=== PATIENT | female | born 1995 | race Hispanic/Latino ===

== ENCOUNTER 2017-01-17 15:20 | Emergency (ER) | payer OTHER ==
[~2017-01-17] VITALS: Ht 162.6 cm; Wt 80.0 kg
[~2017-01-17 15:20] MED LIST: AMOXICILLIN875 MG OR; AMOXICILLIN875 MG PO; CEPHALEXIN500 MG PO; CIPROFLOXACIN500 M1 PO; CLARITIN10 M1 PO; DIFLUCAN150 MG PO; FLONASE NASAL50 MCG; IBUPROFEN600 MG PO; KEFLEX500 MG PO; MEDDOSEPAK OR; MELOXICAM15 MG PO; NAPROSYN250 MG PO; NAPROSYN375 MG PO; NAPROSYN500 MG PO; NO; [UNRECOGNIZED DRUG - OTHER] VA
[2017-01-17] MEDS ORDERED: MOTRIN800 MG PO (15:40)
[2017-01-17 15:50] VITALS: BP 118/66
== END 2017-01-17 15:50 | disposition home or self-care (01) | DRG 605 ==
LOC: ED 15:20
DX: S80.01XA Contusion of right knee, initial encounter (principal); V43.62XA Car passenger injured in collision with other type car in traffic accident, initial encounter

== ENCOUNTER 2020-06-13 18:03 | Emergency (ER) | payer BC ==
[~2020-06-13] VITALS: Ht 162.6 cm; Wt 111.8 kg
[~2020-06-13 18:03] MED LIST changes: +MOTRIN800 MG PO
[2020-06-13] MEDS ORDERED: LISINOPRIL10 MG PO (18:47)
[2020-06-13 19:07] LABS: URINE BILIRUBIN - DIPSTICK NEGATIVE (NEGATIVE); URINE BLOOD DIPSTICK NEGATIVE (NEGATIVE); URINE COLOR YELLOW; URINE GLUCOSE - DIPSTICK NEGATIVE (NEGATIVE); URINE KETONE NEGATIVE (NEGATIVE); URINE LEUK ESTERASE NEGATIVE (NEGATIVE); URINE NITRITE - DIPSTICK NEGATIVE (Negative); URINE PH 5.5 (4.5-8.0); URINE PROTEIN - DIPSTICK NEGATIVE (NEG-TRACE); URINE SPECIFIC GRAVITY >=1.030; URINE UROBILINOGEN - DIPSTICK 0.2 E.U./dL (0.2)
[2020-06-13 19:21] LABS: HEMOGLOBIN 12.9 g/dl (12.0-16.0); IMMATURE GRANULOCYTES 0.3 % (0.0-5.0); MEAN CELL VOLUME 81.3 fL CALC (80.0-100.0); MEAN CORPUSCULAR HGB 26.3 pG CALC (26.0-32.0); MEAN CORPUSCULAR HGB CONC 32.3 g/dL CAL (32.0-36.0); NEUT# 12.01 thou/uL (2.00-7.15); RED BLOOD COUNT 4.91 mill/uL (4.20-5.60); RED CELL DISTRI WIDTH 13.5 % (11.5-15.5)
[2020-06-13 19:24] LABS: HEMATOCRIT 39.9 % (37.0-47.0)
[2020-06-13 19:33] LABS: ALBUMIN 4.2 g/dL (3.2-5.0); AMYLASE 49 u/l (30-110); BUN 12 mg/dL (7-17); BUN/CREATININE RATIO 21 (12-20 (CALC)); CHLORIDE 103 mmol/l (95-108); CREATININE 0.6 mg/dL (0.5-1.0); GFR > 60 ML/MIN (>=60 (CALC)); GFR FOR AFR.AMER. > 60 ML/MIN (>=60 (CALC)); LIPASE 35 u/l (23-300); POTASSIUM 4.1 mmol/l (3.5-5.1); SGOT/AST 23 u/l (14-36); SODIUM 136 mmol/l (137-146); TOTAL PROTEIN 7.4 g/dL (6.3-8.2)
[2020-06-13 19:41] LABS: ALKALINE PHOSPHATASE 85 u/l (38-126); ANION GAP 12 (6-22 (CALC)); BILIRUBIN, TOTAL 0.5 mg/dL (0.0-1.4); CARBON DIOXIDE 25 mmol/l (22-30)
[2020-06-13] MEDS ORDERED: ZOFRAN4 MG/TAB PO (19:57)
[2020-06-13 20:18] VITALS: BP 124/61
== END 2020-06-13 20:28 | disposition home or self-care (01) | DRG 392 ==
LOC: ED 18:03
PROVIDERS: Emergency Medicine
DX: K52.9 Noninfective gastroenteritis and colitis, unspecified (principal); I10 Essential (primary) hypertension

== ENCOUNTER 2022-09-14 08:28 | Emergency (ER) | payer OTHER ==
[~2022-09-14] VITALS: Ht 162.6 cm; Wt 114.0 kg
[~2022-09-14 08:28] MED LIST changes: +LISINOPRIL10 MG PO; +ZOFRAN4 MG/TAB PO
[2022-09-14] MEDS ORDERED: LEXAPRO5 MG PO (08:49)
[2022-09-14] MEDS ORDERED: VENTOLIN HFA108 MCG PO (09:34)
[2022-09-14] MEDS ORDERED: AMOX/K CLAV875 M1 PO (09:34)
[2022-09-14 09:51] VITALS: BP 164/98
== END 2022-09-14 09:59 | disposition home or self-care (01) | DRG 153 ==
LOC: ED 08:28
DX: J06.9 Acute upper respiratory infection, unspecified (principal); I10 Essential (primary) hypertension; F41.9 Anxiety disorder, unspecified; Z20.822 Contact with and (suspected) exposure to COVID-19

== ENCOUNTER 2023-06-25 10:20 | Day surgery (SDC) | payer OTHER ==
[~2023-06-25] VITALS: Ht 162.6 cm; Wt 114.4 kg
[2023-06-25] VITALS (8 sets, daily range): BP systolic 105–146; BP diastolic 63–91
[~2023-06-25 10:20] MED LIST changes: +AMOX/K CLAV875 M1 PO; +ESCITALOPRAM OX10 MG PO; +HYDROCHLOROT25 MG PO; +LEXAPRO20 MG PO; +LEXAPRO5 MG PO; +NORVASC PO; +OXYCODONE HYDRO; +TOPIRAMATE25 MG PO; +VENTOLIN HFA108 MCG PO
--- NOTE | 2023-06-25 10:30 | NUR ---
female pt received to med surg ambulatory in stable condition; admission assessment completed at this time; pt alert and oriented; admits to upper abd pain, will medicate; no n/v noted; resp even and unlabored; hr reg; strong pulses; abd soft/tender with bs present; pt admits to 06/24/23; no urine to inspect at this time; #20 started to rac x1 attempt; flushed and patent; poc/ surgery/npo status explained; call light within reach; will continue to monitor
[2023-06-25 11:04] LABS: BASO% 0.1 % (0-3); EOS% 0.1 % (0-8); HEMATOCRIT 41.9 % (37.0-47.0); HEMOGLOBIN 14.1 g/dl (12.0-16.0); IMMATURE GRANULOCYTES 0.1 % (0.0-5.0); LYMPH% 17.1 % (15-41); MEAN CELL VOLUME 84.1 fL CALC (80.0-100.0); MEAN CORPUSCULAR HGB 28.3 pG CALC (26.0-32.0); MEAN CORPUSCULAR HGB CONC 33.7 g/dL CAL (32.0-36.0); MONO% 6.8 % (2-13); NEUT# 12.07 thou/uL (2.00-7.15); NEUT% 75.8 % (42-76); RED BLOOD COUNT 4.98 mill/uL (4.20-5.60); RED CELL DISTRI WIDTH 11.9 % (11.5-15.5)
[2023-06-25] MEDS ORDERED: HYDROmorphone HCL 2 MG/AMP IV PRN ×2 (11:20→13:35)
[2023-06-25] MEDS ORDERED: STERILE WATER FOR IRRIGATION 1,000 ML BTL IR ONE (11:23)
[2023-06-25] MEDS ORDERED: SODIUM CHLORIDE 1,000 ML BTL IR ONE (11:23)
[2023-06-25] MEDS ORDERED: LIDOcaine HCl 1% (Local Anesth.) 20 ML VIAL ONE (11:23)
[2023-06-25] MEDS ORDERED: Iopamidol 300 (Isovue) 61% 100ML SDV IV ONE (11:24)
[2023-06-25] MEDS ORDERED: GLUCAGON HCL (Rdna) 1 MG VIAL ONE (11:24)
[2023-06-25 11:27] LABS: BUN 8 mg/dL (7-17); BUN/CREATININE RATIO 13 (12-20 (CALC)); CARBON DIOXIDE 27 mmol/l (22-30); CHLORIDE 103 mmol/l (95-108); CREATININE 0.6 mg/dL (0.5-1.0); GFR FOR AFR.AMER. > 60 ML/MIN (>=60 (CALC)); GFR OTHER RACES > 60 ML/MIN (>=60 (CALC)); SODIUM 140 mmol/l (137-146)
[2023-06-25] MEDS ORDERED: FAMOTIDINE 10MG/ML 2ML SDV IV ONE (11:44)
[2023-06-25] MEDS ORDERED: ceFAZolin Sodium 2 GM/VIAL SDV ONE (11:44)
[2023-06-25] MEDS ORDERED: SODIUM CHLORIDE 0.9% 100 ML IV ONE (11:45)
[2023-06-25] MEDS ORDERED: LACTATED RINGER'S 1,000 ML IV ONE (11:45)
[2023-06-25] MEDS ORDERED: PIPERACILLIN Sodium-Tazobactam 3.375 GM VIAL IV ONE (11:46)
[2023-06-25 11:47] LABS: ANION GAP 14 (6-22 (CALC)); POTASSIUM 3.5 mmol/l (3.5-5.1)
[2023-06-25] MEDS ORDERED: SODIUM CHLORIDE 0.9% 10 ML SYR ONE ×2 (11:51→13:57)
[2023-06-25] MEDS ORDERED: ROCURONIUM BROMIDE 10 MG/ML 5ML VIAL IV ONE (12:00)
[2023-06-25] MEDS ORDERED: SUCCINYLCHOLINE CHLORIDE 20 MG/ML 10ML VIAL IV ONE (12:00)
[2023-06-25] MEDS ORDERED: PIPERACILLIN Sodium-Tazobactam 3.375 GM in SODIUM CHLORIDE 0.9% 100 ML IV SCH (12:00)
[2023-06-25] MEDS ORDERED: SUGAMMADEX SODIUM 200 MG/2 ML SDV IV ONE (12:00)
[2023-06-25] MEDS ORDERED: KETOROLAC TROMETHAMINE 15 MG/ML SDV IV SCH (12:00)
[2023-06-25] MEDS ORDERED: ONDANSETRON HCl 4 MG/2 ML SDV IV ONE (12:00)
[2023-06-25] MEDS ORDERED: PROPOFOL 200 MG/20 ML VIAL IV ONE (12:00)
[2023-06-25] MEDS ORDERED: LIDOCAINE HCL 2% 2ML SDV IV ONE (12:00)
[2023-06-25] MEDS ORDERED: KETOROLAC TROMETHAMINE 30 MG/ML SDV IV ONE (12:00)
--- NOTE | 2023-06-25 12:07 | NUR ---
pt in or
[2023-06-25] MEDS ORDERED: DEXTROSE 5% w/NACL 0.45 1,000 ML IV PRN (12:25)
[2023-06-25] MEDS ORDERED: oxyCODONE 5MG/ ACETAMINOPHEN 325MG TAB PO PRN (13:35)
[2023-06-25] MEDS ORDERED: SODIUM CHLORIDE 0.9% 1,000 ML IV PRN (13:35)
[2023-06-25] MEDS ORDERED: ONDANSETRON HCl 4 MG/2 ML SDV IV PRN (13:35)
[2023-06-25] MEDS ORDERED: ACETAMINOPHEN 100 ML IV ONE (13:57)
[2023-06-25] MEDS ORDERED: HYDROmorphone HCL 2 MG/AMP ONE (13:57)
[2023-06-25] MEDS ORDERED: ONDANSETRON HCl 4 MG/2 ML SDV ONE (14:09)
--- NOTE | 2023-06-25 15:05 | NUR ---
pt returned from OR via stretcher accompanied by JINNY LEDESMA in stable condition; bedside report received; assessment completed at this time; pt alert and oriented; admits to mild abd pain rating 2/10; denies need for medication; no n/v noted; resp even and unlabored; lungs clear; skin color wnl; ra; hr reg; strong pulses; no edema noted; abd soft/distended/tender with bs hypoactive to rlq/ruq; no urine to inspect at this time; #20 to rac patent with ivf infusing without complication; no redness or edema noted at site; lap sites x4 noted to abd wall with dermabond glue intact; no s/s of infection noted; plan of care/meds/diet explained; family at bedside; call light within reach; will continue to monitor
[2023-06-25] MEDS ORDERED: SIMETHICONE 20 MG/0.3 ML PO PRN (15:30)
--- NOTE | 2023-06-25 16:30 | NUR ---
awake in bed; s/o at bedside; iv intact and patent; pt offers no complaints; call light within reach; will continue to monitor
--- NOTE | 2023-06-25 17:31 | NUR ---
IS education provided by RT Muro; pt able to pull 500ml
--- NOTE | 2023-06-25 19:20 | NUR ---
PATIENT RESTING IN BED. ALERT AND ABLE TO MAKE NEEDS KNOWN. ASSESSMENT COMPLETE. NO DISTRESS NOTED. COMPLAINTS OF PAIN INTERMITTENTLY TO ABDOMEN. ABDOMEN HAS 4 INCISION SITES WITH DERMABOND. ABDOMEN APPEARS SLIGHTLY PUFFY. PATIENT VOICED SHE IS PASSING GAS AND VOIDINIG WITHOUT DIFFICULTY. DENIES NEEDING ANYTHING AT THIS TIME. BED IN LOW POSITION. CALL HUNTER IN REACH.
--- NOTE | 2023-06-25 23:52 | NUR ---
PATIENT REMAINS RESTING IN BED. RECEIVED PRN ZOFRAN PER ORDER. VOICED BEING ABLE TO VOID WITHOUT DIIFFICULTY. REMAINS PASSING GAS. BED INI LOW POSITION. CALL HUNTER INI REACH.
--- NOTE | 2023-06-26 03:38 | NUR ---
REMAINS RESTING IN BED. DENIES NEEDING ANYTHING AT THIS TIME.
[2023-06-26 04:00] VITALS: BP 100/57
[2023-06-26 06:53] VITALS: BP 117/61
--- NOTE | 2023-06-26 08:00 | NUR ---
pt awake in bed; no apparent distress noted; spouse at bedside; assessment completed at this time; pt alert and oriented; admits to abd pain, will medicate; no n/v noted at this time; resp even and unlabored; lungs clear; skin color wnl; ra; hr reg; strong pulses; abd soft/distended with bs present; no bm noted per hand sign writer; pt admits to voiding without complication; no urine to inspect at this time; #20 to rac patent with ivf infusing without complication; no redness or edema noted at site; 4 lap sites noted to abd with dermabond intact; incisions well approx, no redness or drainage noted; IS at bedside, pt demonstrates use; scds intact; ambulation/ sitting in recliner encouraged; call light within reach; will continue to monitor
[2023-06-26] MEDS ORDERED: amLODIPine BESYLATE 5 MG/TAB PO SCH (09:00)
[2023-06-26] MEDS ORDERED: hydroCHLOROthiazide 25 MG/TAB PO SCH (09:00)
[2023-06-26] MEDS ORDERED: ESCITALOPRAM 10 MG/TAB PO SCH (09:00)
--- NOTE | 2023-06-26 10:40 | NUR ---
Dr Katz present at bedside to assess pt and discuss plan of care; update provided; pt to be discharged
[2023-06-26 10:55] VITALS: BP 110/52
[2023-06-26] MEDS ORDERED: PERCOCET 5/325M1 TAB PO (11:07)
--- NOTE | 2023-06-26 12:00 | NUR ---
awake in bed; offers complaints of pain; awaiting ride home; iv intact; call light within reach; will continue to monitor
--- NOTE | 2023-06-26 12:36 | NUR ---
Dr Katz called per this film writer in regards to pt requesting prescription zofran; verbal order received
--- NOTE | 2023-06-26 12:43 | NUR ---
[facility] called per specification writer; order provided for zofran 4mg odt q6 hours prn n/v
--- NOTE | 2023-06-26 13:04 | NUR ---
Discharge instructions given. Patient verbalizes understanding of same. Discharged in stable condition via Ambulatory to Home with spouse. All belongings sent with pt.
== END 2023-06-26 13:00 | disposition home or self-care (01) | DRG 418 ==
LOC: ORM 10:20 → MS2 10:22 → ORM 06-26 13:00
PROVIDERS: ATTEND Surgery
PROC: 0FT44ZZ Resection of Gallbladder, Percutaneous Endoscopic Approach (ICD-10-PCS; principal; 2023-06-25)
DX: K80.12 Calculus of gallbladder with acute and chronic cholecystitis without obstruction (principal); K82.1 Hydrops of gallbladder; I10 Essential (primary) hypertension; F41.9 Anxiety disorder, unspecified
CPT/HCPCS: J0131; J0690; J1610; Q9966